=== PATIENT | male | born 1935 | race Caucasian/White ===

== ENCOUNTER 2018-11-30 13:00 | Emergency (ER) | payer MEDICARE ==
[~2018-11-30 13:00] MED LIST: Sodium Chloride 0.9% 1,000 ML BAG ONE
[2018-11-30] MEDS ORDERED: Morphine 4 MG/ML VIAL ONE (13:14)
[2018-11-30] MEDS ORDERED: diphenhydrAMINE 50 MG/ML VIAL ONE (13:15)
[2018-11-30] MEDS ORDERED: Metoprolol Tartrate 5 MG/5 ML VIAL ONE (13:15)
[2018-11-30 13:19] LABS: #Basophils 0.1 thou/uL (0.0-0.2); #Eosinphils 0.3 thou/uL (0.0-0.7); #Lymphocytes 3.5 thou/uL (1.20-3.40); #Monocytes 0.9 thou/uL (0.11-0.59); #Neutrophils 5.8 thou/uL (1.40-6.50); %Basophils 0.9 % (0.0-1.0); %Eosinophils 2.9 % (0.0-10.0); %Lymphocytes 32.9 % (21.0-51.0); %Monocytes 8.2 % (0.0-10.0); %Neutrophils 55.2 % (42.0-75.0); Hemoglobin 13.3 g/dL (14.0-18.0); Mean Corpuscular HGB CONC 33.1 g/dL (32.0-36.0); Mean Corpuscular Hemoglobin 31.3 pg (27.0-31.0); Mean Corpuscular Volume 94.5 fL (78.0-98.0); Mean Platelet Volume 8.2 fL (7.4-10.4); Platelet Count 204 thou/uL (130-400); RBC Distribution Width 11.9 % (11.5-14.5); Red Blood Cell (RBC) Count 4.27 mill/uL (4.70-6.10); White Blood Cell (WBC) Count 10.6 thou/uL (4.8-10.8)
[2018-11-30 13:30] LABS: Prothrombin Time 13.5 SEC (12.0-14.7)
[2018-11-30] MEDS ORDERED: Heparin 5,000 UNITS/ML VIAL ONE (13:37)
[2018-11-30] MEDS ORDERED: Heparin 25,000 units/D5W 500 ML ONE (13:37)
[2018-11-30 13:40] LABS: ALT (SGPT) 30 U/L (8-55); AST (SGOT) 25 U/L (5-34); Albumin 3.8 g/dL (3.4-4.8); Alkaline Phosphatase 72 U/L (40-150); Anion Gap 13 mmol/L (10-20); BUN (Urea Nitrogen) 22 mg/dL (8.4-25.7); Bilirubin, Total 0.4 mg/dL (0.2-1.2); Calc. Creatinine Clearance 0 mL/min (70-130); Calcium 9.3 mg/dL (7.8-10.44); Carbon Dioxide 26 mmol/L (23-31); Chloride 104 mmol/L (98-107); Estimated GFR-MDRD 43; Globulin 2.9 g/dL (2.4-3.5); Glucose 95 mg/dL (83-110); Potassium 4.1 mmol/L (3.5-5.1); Protein, Total 6.7 g/dL (5.8-8.1); Sodium 139 mmol/L (136-145)
[2018-11-30] MEDS ORDERED: Nitroglycerin 50 MG/250 ML BOT 250 ML ONE (14:19)
--- NOTE | 2018-11-30 14:20 | RAD ---
PORTABLE CHEST: 11/30/2018 PROVIDED CLINICAL HISTORY: Chest pain. COMPARISON: 01/29/2013 FINDINGS: The cardiac and mediastinal silhouette is within normal limits. The lungs appear clear. No pleural fluid or pneumothorax apparent. Vascular calcification involves the aortic arch. IMPRESSION: No evidence for an acute cardiopulmonary process. POS: [facility]
[2018-11-30] MEDS ORDERED: Heparin 10,000 UNITS/1 ML VIAL ONE (14:29)
[2018-11-30] MEDS ORDERED: EPINEPHrine 1 MG/ML AMP ONE (14:34)
[2018-11-30] MEDS ORDERED: EPINEPHrine 1 MG/10 ML Abboject SYRINGE ONE (14:34)
[2018-11-30] MEDS ORDERED: DOPamine 400 MG/D5W 250 ML 250 ML ONE (14:35)
[2018-11-30] MEDS ORDERED: Adenosine 6 MG/2 ML VIAL ONE (14:42)
[2018-11-30] MEDS ORDERED: Aggrastat 12.5 MG/250 ML 250 ML ONE (14:54)
== END 2018-11-30 13:48 | disposition short-term general hospital (02) ==
LOC: MADERS 13:00
DX: I21.19 ST elevation (STEMI) myocardial infarction involving other coronary artery of inferior wall (principal); I10 Essential (primary) hypertension; E11.9 Type 2 diabetes mellitus without complications; Z79.899 Other long term (current) drug therapy; Z79.82 Long term (current) use of aspirin; Z79.4 Long term (current) use of insulin
CPT/HCPCS: 71045; 80053; 82962; 83690; 84484; 85025; 85610; 85730; 93005; 94760; 96361; 96374; 96375; 99285; J3246; 36415; 36416; J0153; J0171; J1200; J1265; J1644; J2270; J7050